=== PATIENT | male | born 1945 | race Caucasian/White ===

== ENCOUNTER → 2017-03-23 | Outpatient (CLI) | payer MEDICARE ==
--- NOTE | 2017-03-23 12:12 | US ---
EXAMINATION TYPE: US carotid duplex BILAT DATE OF EXAM: 03/23/2017 COMPARISON: NONE CLINICAL HISTORY: R55 pre syncope. Patient states passing out spontaneously. Prostate CA. No HTN. EXAM MEASUREMENTS: RIGHT: Peak Systolic Velocity (PSV) cm/sec ----- Right CCA: 87.7 ----- Right ICA: 53.2 ----- Right ECA: 55.8 ICA/CCA ratio: 0.6 RIGHT: End Diastole cm/sec ----- Right CCA: 22.7 ----- Right ICA: 18.2 ----- Right ECA: 10.4 LEFT: Peak Systolic Velocity (PSV) cm/sec ----- Left CCA: 76.7 ----- Left ICA: 53.2 ----- Left ECA: 63.8 ICA/CCA ratio: 0.7 LEFT: End Diastole cm/sec ----- Left CCA: 18.3 ----- Left ICA: 16.5 ----- Left ECA: 10.9 VERTEBRALS (direction of flow): Right Vertebral: Antegrade Left Vertebral: Antegrade No elevated velocities or significant stenosis noted. Small anterior plaque seen in left bulb. Bilate ral wall thickening. IMPRESSION: Mild atheromatous plaquing without hemodynamically significant stenosis within either ca rotid system.
--- NOTE | 2017-03-23 13:09 | MR ---
EXAMINATION TYPE: MR brain wo/w con DATE OF EXAM: 03/23/2017 COMPARISON: Outside report from [facility] of CT brain HISTORY: Syncope TECHNIQUE: Multiplanar, multisequence images of the brain and brainstem is performed without and with IV contras t, utilizing 10 mL intravenous Gadavist . FINDINGS: Diffusion weighted images demonstrate no evidence of a recent infarct or other diffusion abnormality. There is no extra-axial fluid collection or. The ventricular system and cisternal spaces are symmet rically prominent compatible with age-related volume loss. This is seen both supratentorially and inf ratentorially. There is ectasia of the left vertebral artery measuring up to 6 mm as opposed to the r ight vertebral artery measuring 2 mm. Scattered areas of T2 hyperintensity are seen throughout the subcortical and periventricular white ma tter. No enhancement are seen of any of these foci. Midline structures demonstrate normal morphology. The craniocervical junction appears within normal limits. Post contrast images demonstrate no abno rmal enhancement. The dural venous sinuses appear patent. Scant mucosal thickening is seen within the ethmoid sinuses and right maxillary sinus. Small amount of fluid is present within the mastoid air c ells. The remaining visualized sinuses are clear and the globes are intact. IMPRESSION: 1. Nonspecific white matter changes with no abnormal enhancement, likely on the basis of chronic micr oangiopathy. 2. No restricted diffusion, abnormal enhancement, or evidence of intracranial mass. 3. Left vertebral artery ectasia measuring up to 6 mm. 4. Age-related supratentorial and infratentorial symmetric volume loss. 5. Small amount of fluid within the mastoid air cells, that could clinically relate to mastoiditis. 6. Mild paranasal sinus disease.
== END | disposition home or self-care (01) ==
LOC: RADUSMAIN 10:26
PROVIDERS: ATTEND Psychiatry & Neurology Neurology
DX: I65.29 Occlusion and stenosis of unspecified carotid artery (principal); R90.89 Other abnormal findings on diagnostic imaging of central nervous system
CPT/HCPCS: 93880; 70553; A9581

== ENCOUNTER 2017-05-05 16:21 | Inpatient (IN) | payer MEDICARE ==
--- NOTE | 2017-05-05 17:13 | ED ---
General Adult HPI - General Chief complaint: Syncope Stated complaint: Syncope Time Seen by Provider: 05/05/17 16:25 Source: patient, family, RN notes reviewed Mode of arrival: wheelchair Limitations: no limitations - History of Present Illness Initial comments: This is a 71-year-old male who presents emergency department after having a syncopal episode. Patient states she was sitting his couch when also any felt manager internet the next thing he remembers is waking up in the chair. Patient states at that point he was asymptomatic. Patient's states he has had multiple syncopal episodes all over the last few years. Patient has a heart monitor on and a heart monitor company called the house and said he had a significant event and take the patient to the emergency department. Patient denies any chest pain palpitations difficulty breathing or shortness of breath. Patient denies any headache patient denies numbness weakness. Patient denies feeling lightheaded or dizzy. She states the only symptom he had was feeling warm. Patient states this is typical of what happens when he has had this in the past. - Related Data Home Medications Medication Instructions Recorded Confirmed Allopurinol [Zyloprim] 300 mg PO DAILY 05/05/17 05/05/17 Allergies Allergy/AdvReac Type Severity Reaction Status Date / Time ciprofloxacin Allergy Unknown Verified 05/05/17 17:35 levofloxacin Allergy Unknown Verified 05/05/17 17:35 Review of Systems ROS Statement: Those systems with pertinent positive or pertinent negative responses have been documented in the HPI. ROS Other: All systems not noted in ROS Statement are negative. Past Medical History Past Medical History: Cancer, Syncope Additional Past Medical History / Comment(s): gout, prostate History of Any Multi-Drug Resistant Organisms: None Reported Past Surgical History: Appendectomy Additional Past Surgical History / Comment(s): radiation Past Psychological History: No Psychological Hx Reported Smoking Status: Never smoker Past Alcohol Use History: Daily Past Drug Use History: None Reported General Exam - General Exam Comments Initial Comments: GENERAL: Patient is well-developed and well-nourished. Patient is nontoxic and well- hydrated and is in no acute distress. ENT: Neck is soft and supple. No significant lymphadenopathy is noted. Oropharynx is clear. Moist mucous membranes. Neck has full range of motion without eliciting any pain. EYES: The sclera were anicteric and conjunctiva were pink and moist. Extraocular movements were intact and pupils were equal round and reactive to light. Eyelids were unremarkable. PULMONARY: Unlabored respirations. Good breath sounds bilaterally. No audible rales rhonchi or wheezing was noted. CARDIOVASCULAR: There is a regular rate and rhythm without any murmurs gallops or rubs. ABDOMEN: Soft and nontender with normal bowel sounds. No palpable organomegaly was noted. There is no palpable pulsatile mass. SKIN: Skin is clear with no lesions or rashes and otherwise unremarkable. NEUROLOGIC: Patient is alert and oriented x3. Cranial nerves II through XII are grossly intact. Motor and sensory are also intact. Normal speech, volume and content. Symmetrical smile. MUSCULOSKELETAL: Normal extremities with adequate strength and full range of motion. No lower extremity swelling or edema. No calf tenderness. LYMPHATICS: No significant lymphadenopathy is noted PSYCHIATRIC: Normal psychiatric evaluation. Normal interpersonal interactions appears functionally intact in deals appropriately with others. No signs of depression. No signs of anxiety. 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 Patient's EKG shows no ST segment elevation or depression or T wave abnormalities are normal Chest x-ray shows no acute abnormality. We had the strips from the [email or web address] that was monitoring his heart it showed significant episodes of bradycardia I spoke with Dr. Kiran who is on for Dr. Colby he agreed to admit the patient I wrote admitting orders I consult to cardiology - Lab Data Result diagrams: 05/05/17 16:50 05/05/17 16:50 Lab Results 05/05/17 05/05/17 05/05/17 Range/Units 16:50 16:50 16:50 WBC 4.7 (3.8-10.6) k/uL RBC 4.36 (4.30-5.90) m/uL Hgb 14.1 (13.0-17.5) gm/dL Hct 43.3 (39.0-53.0) % MCV 99.3 (80.0-100.0) fL MCH 32.2 (25.0-35.0) pg MCHC 32.4 (31.0-37.0) g/dL RDW 14.8 (11.5-15.5) % Plt Count 179 (150-450) k/uL Neutrophils % 67 % Lymphocytes % 20 % Monocytes % 7 % Eosinophils % 3 % Basophils % 0 % Neutrophils # 3.1 (1.3-7.7) k/uL Lymphocytes # 0.9 L (1.0-4.8) k/uL Monocytes # 0.3 (0-1.0) k/uL Eosinophils # 0.1 (0-0.7) k/uL Basophils # 0.0 (0-0.2) k/uL Macrocytosis Slight PT (9.0-12.0) sec INR (<1.2) APTT (22.0-30.0) sec Sodium 136 L (137-145) mmol/L Potassium 4.3 (3.5-5.1) mmol/L Chloride 100 (98-107) mmol/L Carbon Dioxide 24 (22-30) mmol/L Anion Gap 12 mmol/L BUN 16 (9-20) mg/dL Creatinine 0.97 (0.66-1.25) mg/dL Est GFR (MDRD) Af Amer >60 (>60 ml/min/1.73 sqM) Est GFR (MDRD) Non-Af >60 (>60 ml/min/1.73 sqM) Glucose 130 H (74-99) mg/dL Calcium 9.5 (8.4-10.2) mg/dL Magnesium 2.0 (1.6-2.3) mg/dL Total Bilirubin 0.7 (0.2-1.3) mg/dL AST 28 (17-59) U/L ALT 32 (21-72) U/L Alkaline Phosphatase 97 (38-126) U/L Total Creatine Kinase 69 (55-170) U/L CK-MB (CK-2) 1.2 (0.0-2.4) ng/mL CK-MB (CK-2) Rel Index 1.7 Troponin I <0.012 (0.000-0.034) ng/mL Total Protein 7.0 (6.3-8.2) g/dL Albumin 4.4 (3.5-5.0) g/dL 05/05/17 Range/Units 16:50 WBC (3.8-10.6) k/uL RBC (4.30-5.90) m/uL Hgb (13.0-17.5) gm/dL Hct (39.0-53.0) % MCV (80.0-100.0) fL MCH (25.0-35.0) pg MCHC (31.0-37.0) g/dL RDW (11.5-15.5) % Plt Count (150-450) k/uL Neutrophils % % Lymphocytes % % Monocytes % % Eosinophils % % Basophils % % Neutrophils # (1.3-7.7) k/uL Lymphocytes # (1.0-4.8) k/uL Monocytes # (0-1.0) k/uL Eosinophils # (0-0.7) k/uL Basophils # (0-0.2) k/uL Macrocytosis PT 10.3 (9.0-12.0) sec INR 1.0 (<1.2) APTT 25.0 (22.0-30.0) sec Sodium (137-145) mmol/L Potassium (3.5-5.1) mmol/L Chloride (98-107) mmol/L Carbon Dioxide (22-30) mmol/L Anion Gap mmol/L BUN (9-20) mg/dL Creatinine (0.66-1.25) mg/dL Est GFR (MDRD) Af Amer (>60 ml/min/1.73 sqM) Est GFR (MDRD) Non-Af (>60 ml/min/1.73 sqM) Glucose (74-99) mg/dL Calcium (8.4-10.2) mg/dL Magnesium (1.6-2.3) mg/dL Total Bilirubin (0.2-1.3) mg/dL AST (17-59) U/L ALT (21-72) U/L Alkaline Phosphatase (38-126) U/L Total Creatine Kinase (55-170) U/L CK-MB (CK-2) (0.0-2.4) ng/mL CK-MB (CK-2) Rel Index Troponin I (0.000-0.034) ng/mL Total Protein (6.3-8.2) g/dL Albumin (3.5-5.0) g/dL Disposition Clinical Impression: Syncope and collapse, Bradycardia Disposition: ADMITTED IP TO THIS HOSP Referrals: Mikel Colby MD [Primary Care Provider] - 1-2 days Time of Disposition: 19:10
[2017-05-05 17:59] LABS: Basophils % (A) 0 %; CH 33.4; CHCM 33.9; Eosinophils # (A) 0.1 k/uL (0-0.7); Eosinophils % (A) 3 %; HCT 43.3 % (39.0-53.0); HDW 2.73; HGB 14.1 gm/dL (13.0-17.5); Luc # (Auto) 0.12; Luc % (Auto) 3; Lymphocytes # (A) 0.9 k/uL (1.0-4.8); Lymphocytes % (A) 20 %; MCH 32.2 pg (25.0-35.0); MCHC 32.4 g/dL (31.0-37.0); MCV 99.3 fL (80.0-100.0); Macrocytosis Slight; Mean Platelet Volume 7.6; Monocytes # (A) 0.3 k/uL (0-1.0); Monocytes % (A) 7 %; Neutrophils # (A) 3.1 k/uL (1.3-7.7); Neutrophils % (A) 67 %; RBC 4.36 m/uL (4.30-5.90); RDW 14.8 % (11.5-15.5); WBC 4.7 k/uL (3.8-10.6); WBC (Perox) 4.63
[2017-05-05 18:11] LABS: ALT 32 U/L (21-72); AST 28 U/L (17-59); Alkaline Phosphatase 97 U/L (38-126); Anion Gap 12 mmol/L; Blood Urea Nitrogen 16 mg/dL (9-20); Calcium 9.5 mg/dL (8.4-10.2); Carbon Dioxide 24 mmol/L (22-30); Chloride 100 mmol/L (98-107); Glucose 130 mg/dL (74-99); Non-African American GFR(MDRD) >60 (>60 ml/min/1.73 sqM); Potassium 4.3 mmol/L (3.5-5.1); Sodium 136 mmol/L (137-145); Total Bilirubin 0.7 mg/dL (0.2-1.3)
[2017-05-05 18:18] LABS: Creatine Kinase 69 U/L (55-170)
--- NOTE | 2017-05-05 18:27 | XR ---
EXAMINATION TYPE: XR chest 1V DATE OF EXAM: 05/05/2017 COMPARISON: NONE HISTORY: Chest pain TECHNIQUE: Single frontal view of the chest is obtained. FINDINGS: There is no heart failure nor confluent pneumonic infiltrate. Costophrenic angles are silvia r. There are chest leads. Heart size is normal. IMPRESSION: No active cardiopulmonary disease.
[2017-05-05 18:31] LABS: Creatine Kinase MB 1.2 ng/mL (0.0-2.4); Troponin I <0.012 ng/mL (0.000-0.034)
[2017-05-05 18:42] LABS: Prothrombin Time 10.3 sec (9.0-12.0)
[2017-05-05] MEDS ORDERED: SODIUM CHLORIDE 0.9% 1,000 ML IV ONE (19:12)
[2017-05-05 21:30] VITALS: BMI 37.3
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
[2017-05-06] MEDS ORDERED: ceFAZolin 1,000 MG in SODIUM CHLORIDE 0.9% IRRIGATIO 250 ML IRRIGATION ONE (10:33)
[2017-05-06] MEDS ORDERED: ceFAZolin 2 GM in SODIUM CHLORIDE 0.9% 100 ML IVPB ONE (10:33)
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
[2017-05-07 06:58] LABS: ALT 40 U/L (21-72); AST 23 U/L (17-59); Alkaline Phosphatase 114 U/L (38-126); Anion Gap 12 mmol/L; Blood Urea Nitrogen 18 mg/dL (9-20); Calcium 10.1 mg/dL (8.4-10.2); Carbon Dioxide 21 mmol/L (22-30); Chloride 104 mmol/L (98-107); Glucose 111 mg/dL (74-99); Non-African American GFR(MDRD) >60 (>60 ml/min/1.73 sqM); Potassium 4.7 mmol/L (3.5-5.1); Sodium 137 mmol/L (137-145); Total Bilirubin 1.1 mg/dL (0.2-1.3); Total Protein 7.2 g/dL (6.3-8.2)
[2017-05-07 07:01] LABS: Basophils % (A) 0 %; CH 32.5; CHCM 33.9; Eosinophils # (A) 0.2 k/uL (0-0.7); Eosinophils % (A) 3 %; HCT 46.3 % (39.0-53.0); HGB 15.3 gm/dL (13.0-17.5); Luc # (Auto) 0.15; Luc % (Auto) 3; Lymphocytes # (A) 1.2 k/uL (1.0-4.8); Lymphocytes % (A) 23 %; MCH 31.7 pg (25.0-35.0); MCV 96.2 fL (80.0-100.0); Mean Platelet Volume 7.4; Monocytes # (A) 0.4 k/uL (0-1.0); Monocytes % (A) 8 %; Neutrophils # (A) 3.3 k/uL (1.3-7.7); Neutrophils % (A) 63 %; RBC 4.81 m/uL (4.30-5.90); RDW 13.7 % (11.5-15.5); WBC 5.2 k/uL (3.8-10.6); WBC (Perox) 5.34
[2017-05-07 07:19] LABS: Manual Review Performed
[2017-05-07] MEDS: PANTOPRAZOLE 40 MG/10 ML VIAL IVP SCH (08:32)
--- NOTE | 2017-05-07 11:13 | P.PN ---
Subjective Progress Note Date: 05/07/17 05/07/17- patient being seen examined and evaluated today for Dr. Mikel Colby. patient is seen resting up in bed and street clothes, on room air. Denies any shortness of breath cough or congestion at this time. Patient is supposed to go for pacemaker insertion tomorrow with cardiology per the nursing staff. continues to be in sinus rhythm on telemetry. he has not required any supplemental oxygen. All labs and reports have been reviewed. He is afebrile, no further complaints. 05/06/17- This is a 71-year-old male patient being seen examined and evaluated today for Dr. Mikel Colby. Apparently the patient was resting in a recliner and became clammy and diaphoretic and then lost consciousness. He conveniently had a Holter monitor in place at that time in the Holter monitor company called the and stated that she should go to the emergency room. EKG on presentation in the emergency room did show a normal sinus rhythm with PACs. The Holter monitor company did send over the tracings and he was noted to have 2 episodes of greater than 4 second pause. Patient denies any chest pain, palpitations, difficulty in breathing or shortness of breath. He also denies feeling any lightheadedness or dizziness. Patient states he has had syncopal episodes in the past as well. Chest x-ray was negative for any acute cardiopulmonary disease. All labs and reports have been reviewed. Patient was admitted and cardiology was put on consult. Objective - Vital Signs Vital signs: Vital Signs Temp 97 F L 05/07/17 08:00 Pulse 90 05/07/17 08:00 Resp 17 05/07/17 08:00 BP 140/86 05/07/17 08:00 Pulse Ox 96 05/07/17 08:00 Intake & Output 05/06/17 05/07/17 05/07/17 18:59 06:59 18:59 Intake Total 100 360 Balance 100 360 Weight 108.3 kg Intake: Oral 100 360 Other: Voiding Method Toilet Toilet Toilet # Voids 1 - Exam GENERAL EXAM: Alert, active, comfortable in no apparent distress. HEAD: Normocephalic. EYES: Normal reaction of pupils, equal size. NOSE: Clear with pink turbinates. THROAT: No erythema or exudates. NECK: No masses, no JVD. CHEST: No chest wall deformity. LUNGS: Equal air entry with no crackles, wheeze, rhonchi or dullness. CVS: S1 and S2 normal with no audible mumurs, regular rhythm. ABDOMEN: No hepatosplenomegaly, normal bowel sounds, no guarding or rigidity. EXTREMITIES: No edema noted, pedal pulses palpable. SKIN: No rashes CENTRAL NERVOUS SYSTEM: No focal deficits, tone is normal in all 4 extremities. - Labs CBC & Chem 7: 05/07/17 06:09 05/07/17 06:09 Labs: Abnormal Lab Results - Last 24 Hours (Table) 05/07/17 Range/Units 06:09 Carbon Dioxide 21 L (22-30) mmol/L Glucose 111 H (74-99) mg/dL Assessment and Plan Plan: Assessment Syncope Abnormal EKG with evidence of greater than 4 second pulses Prostate cancer History of hypertension History of seizures Plan Medications have been reviewed and will be continued as ordered. Patient is being worked up for possible pacemaker insertion initially scheduled for tomorrow per nursing staff.. Continue with pulmonary hygiene, coughing and deep breathing exercises, and supportive care. Supplemental oxygen to maintain oxygen saturations of 92% or better. Continue nebulizer treatments. GI and DVT prophylaxis. We will continue to monitor labs/results and adjust treatment as necessary. Further recommendations pending. I performed an examination of the patient and discussed their management with the nurse practitioner. I have reviewed the nurse practitioner's note and agree with the documented findings and plan of care.
--- NOTE | 2017-05-07 12:31 | P.PN ---
Subjective Progress Note Date: 05/07/17 Principal diagnosis: Syncope This is a pleasant 71-year-old gentleman with history of multiple syncopal episodes, history of seizures, history of prostate cancer, he presented to the hospital following a syncopal episode. According to the , he was sitting in a lazy boy chair, became clammy and diaphoretic, and then lost consciousness. He did have a holter monitor in place, shortly after his syncopal episode they received a call from the [employer] stating that the patient had a cardiac event of greater than 4 seconds and was advised to come to the emergency room. According to the , patient had also been at [facility] recently because of frequent syncopal episodes, he had been evaluated by neurology, cardiology also had seen the patient on that occasion and recommended the outpatient Holter monitor. EKG on presentation here showed a normal sinus rhythm with PACs. Upon review of the monitor tracings sent over from the Holter monitor, patient is noted to have 2 episodes of greater than 4 second pause with we'll episodes of 2 second pauses. Is not on any rate lowering medications at home. Chest x-ray does not reveal any active cardiopulmonary disease. Blood Pressure on arrival 178/80, with a heart rate in the 70s 98% on room air. CBC normal, sodium 136, potassium 4.3, BUN 16, creatinine 0.9. Troponin 0.012. 05/07/2017 Patient seen and examined this morning, he's been ambulating in the delgado most of the day. No further pauses noted on the monitor. He is scheduled to undergo implantation of a permanent pacemaker tomorrow with Dr. Eid. The risks and the benefits were discussed with the patient and his in detail. TSH and free T4 normal. Objective - Vital Signs Vital signs: Vital Signs Temp 97 F L 05/07/17 08:00 Pulse 88 05/07/17 11:37 Resp 16 05/07/17 11:37 BP 129/88 05/07/17 11:37 Pulse Ox 97 05/07/17 11:37 Intake & Output 05/06/17 05/07/17 05/07/17 18:59 06:59 18:59 Intake Total 100 360 Output Total 120 Balance 100 240 Weight 108.3 kg Intake: Oral 100 360 Output: Urine 120 Other: Voiding Method Toilet Toilet Toilet # Voids 1 1 - Exam PHYSICAL EXAMINATION: HEENT: Head is atraumatic, normocephalic. Pupils equal, round. Neck is supple. There is no elevated jugular venous pressure. HEART EXAMINATION: S1 and S2 systolic murmur is heard CHEST EXAMINATION:[ Lungs are clear to auscultation and precussion. No chest wall tenderness is noted on palpation or with deep breathing.] ABDOMEN: [ Soft, nontender. Bowel sounds are heard. No organomegaly noted]. EXTREMITIES:[ 2+ peripheral pulses with no evidence of peripheral edema and no calf tenderness noted]. NEUROLOGIC [patient is awake, alert and oriented -3.] . - Labs CBC & Chem 7: 05/07/17 06:09 05/07/17 06:09 Labs: Abnormal Lab Results - Last 24 Hours (Table) 05/07/17 Range/Units 06:09 Carbon Dioxide 21 L (22-30) mmol/L Glucose 111 H (74-99) mg/dL Assessment and Plan Plan: Assessment and plan #1 multiple syncopal episodes with evidence of greater than 4 second pauses. Vasovagal features. #2 prostate cancer #3 hypertension #4 history of seizures Plan Patient is scheduled to undergo implantation of a permanent pacemaker tomorrow with Dr. Eid. The risks and benefits were explained to the patient and his in detail. DNP note has been reviewed, I agree with a documented findings and plan of care. Patient was seen and examined.
[2017-05-07] MEDS: SODIUM CHLORIDE 0.9% 1,000 ML IV SCH (23:21)
[2017-05-08] MEDS ORDERED: SODIUM CHLORIDE 0.9% 1,000 ML IV SCH (06:00)
[2017-05-08] MEDS: PANTOPRAZOLE 40 MG/10 ML VIAL IVP SCH (07:21)
[2017-05-08] MEDS ORDERED: ceFAZolin 2 GM in SODIUM CHLORIDE 0.9% 100 ML IVPB ONE (08:00)
[2017-05-08] MEDS ORDERED: ceFAZolin 1,000 MG in SODIUM CHLORIDE 0.9% IRRIGATIO 250 ML IRRIGATION ONE (08:00)
[2017-05-08] MEDS ORDERED: IV FLUID CONTINUATION 1,000 ML IV ONE (08:10)
[2017-05-08] MEDS ORDERED: IODIXANOL 320 MG/ML 100 ML IV ONE (08:26)
[2017-05-08] MEDS ORDERED: fentaNYL (PF) 50 MCG/ML 2 ML AMP ONE (08:40)
[2017-05-08] MEDS ORDERED: fentaNYL (PF) 50 MCG/ML 2 ML AMP IVP ONE (08:41)
[2017-05-08] MEDS ORDERED: MIDAZOLAM 2 MG/2 ML VIAL ONE (08:48)
[2017-05-08] MEDS: MIDAZOLAM 2 MG/2 ML VIAL IVP ONE ×2 (08:50→09:03)
[2017-05-08] MEDS ORDERED: LIDOCAINE 1% INJ 10MG/ML (20 ML MDV) IV ONE (08:51)
[2017-05-08] MEDS ORDERED: LIDOCAINE 1% INJ 10MG/ML (20 ML MDV) SQ ONE (08:53)
[2017-05-08] MEDS ORDERED: ACETAMINOPHEN TAB 325 MG TAB PO PRN (10:12)
--- NOTE | 2017-05-08 10:46 | CE ---
CARDIAC ELECTROPHYSIOLOGY REPORT A 71-year-old male patient, who presented to the hospital yet again with severe sick sinus syndrome with long sinus pauses associated with presyncope and syncope. The patient has had multiple episodes of syncopal spells for the last 3 months and his event monitor has shown long sinus pauses and sinus arrest. He is not on any chronotropic AV debbie blocking drugs. Electrolytes are normal. The potassium is normal. He was referred by Dr. VC Gunter for dual-chamber pacemaker implant. Patient brought to the EP lab in a fasting state. Written informed consent was obtained prior to the procedure. The left shoulder area was prepped and draped as per protocol. 1% lidocaine was used for local anesthesia. A 4 cm incision was made parallel to the deltopectoral groove. A 1.5 cm medial to it the incision was carried down to the level of the pectoralis muscle. A subfascial pocket was made. Hemostasis was assured. The left axillary vein was accessed at 2 separate points under fluoroscopy and via appropriately-sized introducer sheaths 2 leads were positioned in the right heart. The atrial lead was a [employer], model #2088TC, 46 cm in length and serial number [id number]. This was screwed in the right atrial appendage. P waves were 4.6 mV. Pacing threshold 0.8 V at 0.4 milliseconds. Pacing impedance of 400 ohms. 10 V test negative. The RV lead was positioned just above the RV apex, low septum. Pacing threshold was 0.8 V at 0.4 milliseconds. R-wave 6.5 mV. Pacing impedance 600 ohms. 10 V test negative. Both leads secured to the underlying pectoralis fascia using 2 nonabsorbable sutures. Pocket was irrigated with antibiotic solution. Leads were connected to the generator ([employer] model number [id number], serial #[id number]). The leads and the generator were placed in the subfascial pocket. The wound was closed in 3 layers and dressed per protocol. RESULT: Successful dual chamber implantation for symptomatic sick sinus syndrome with long sinus pauses and sinus arrest associated with presyncope and syncope. The device was reprogrammed to DDDR 50 to 130 bpm with VIP mode turned on. MMODL / IJN: [id number] /
--- NOTE | 2017-05-08 12:45 | P.PCN ---
Preoperative Diagnosis: Patient underwent EP procedure under conscious sedation/moderate sedation, monitoring of the level of consciousness and physiologic parameters including but not limited to vital signs and oxygenation. Patient tolerated the procedure well without any acute complications. Start time: 850 Stop time: 953 63 minutes
--- NOTE | 2017-05-08 15:15 | ECHOF ---
Referral Reason:syncope MEASUREMENTS -------- HEIGHT: 170.2 cm WEIGHT: 108.0 kg BP: 129/88 RVIDd: 2.6 cm (< 3.3) IVSd: 1.3 cm (0.6 - 1.1) LVIDd: 2.2 cm (3.9 - 5.3) LVPWd: 1.2 cm (0.6 - 1.1) IVSs: 1.5 cm LVIDs: 1.6 cm LVPWs: 1.6 cm LAESV Index (A-L): 18.18 ml/m Ao Diam: 3.9 cm (2.0 - 3.7) AV Cusp: 1.9 cm (1.5 - 2.6) LA Diam: 2.8 cm (2.7 - 3.8) MV E Sherman: 0.82 m/s MV DecT: 207 ms MV A Sherman: 1.10 m/s MV E/A Ratio: 0.74 FINDINGS -------- Sinus rhythm. This was a technically adequate study. The left ventricular size is normal. There is borderline concentric left ventricular hypertrophy. Overall left ventricular systolic function is normal with, an EF between 55 - 60 %. The right ventricle is normal in size and function. Normal LA size by volume 22+/-6 ml/m2. The right atrium is normal in size. The aortic valve is trileaflet, and appears structurally normal. No aortic stenosis or regurgitation. The mitral valve leaflets are mildly thickened. There is trace mitral regurgitation. Trace tricuspid regurgitation present. Right ventricular systolic pressure is normal at < 35 mmHg. There is no evidence of pulmonary hypertension. The pulmonic valve was not well visualized. The aortic root size is normal. Normal inferior vena cava with normal inspiratory collapse consistent with estimated right atrial pressure of 5 mmHg. The pericardium is normal. There is no pericardial effusion. CONCLUSIONS -------- 1. Sinus rhythm. 2. Trace tricuspid regurgitation present. 3. Right ventricular systolic pressure is normal at < 35 mmHg. 4. There is no evidence of pulmonary hypertension. 5. The pulmonic valve was not well visualized. 6. The aortic root size is normal. 7. There is no pericardial effusion. 8. This was a technically adequate study. 9. The left ventricular size is normal. 10. There is borderline concentric left ventricular hypertrophy. 11. Overall left ventricular systolic function is normal with, an EF between 55 - 60 %. 12. Normal LA size by volume 22+/-6 ml/m2. 13. The aortic valve is trileaflet, and appears structurally normal. No aortic stenosis or regurgitation. 14. The mitral valve leaflets are mildly thickened. 15. There is trace mitral regurgitation. [employer]: Isaiah Martinez RDCS
[2017-05-08] MEDS: ceFAZolin 2 GM in SODIUM CHLORIDE 0.9% 100 ML IVPB SCH ×2 (15:23→20:48)
[2017-05-08 16:33] VITALS: RESP 16
--- NOTE | 2017-05-08 18:58 | PN ---
PROGRESS NOTE SUBJECTIVE: A 71-year-old, white male with syncope due to ventricular pauses, pacemakers was placed today by Dr. Eid. He is on prophylactic antibiotics for wound site infection of the left chest. White count essentially normal. Labs essentially normal. Thyroid tests are normal. The patient is requesting a PSA level to be drawn. Discussed with him possible discharge home in the morning. He is on prophylactic antibiotics at this time. Vital signs appear to be stable. ASSESSMENT: Ventricular pauses, bradycardia, syncope, some vasovagal component. Pacemakers placed. Possible discharge home in the morning as the patient recovers from pacemaker placement. Being monitored. MMODL / IJN: [id number] /
[2017-05-09] MEDS: ceFAZolin 2 GM in SODIUM CHLORIDE 0.9% 100 ML IVPB SCH ×2 (03:45→08:23)
--- NOTE | 2017-05-09 07:19 | XR ---
EXAMINATION TYPE: XR chest 2V DATE OF EXAM: 05/09/2017 COMPARISON: 05/05/2017 HISTORY: 71-year-old male leak placement check TECHNIQUE: Frontal and lateral views FINDINGS: Rightward patient rotation ultrasound normal cardiac mediastinal contours and accentuates the elongat ed/ectatic thoracic aorta. Very calcified right hilar lymph node versus prominent vessel on end. Left anterior chest wall pacemaker generator with right atrial and right ventricular leads. Strandy atele ctasis at the left base. No consolidation or pleural effusion. IMPRESSION: Rotated exam accentuates the elongated/ectatic thoracic aorta. Very calcified lymph node at the right hilum which would suggest prior granulomatous disease. 2-lead left chest wall pacemaker generator.
[2017-05-09] MEDS: PANTOPRAZOLE 40 MG/10 ML VIAL IVP SCH (08:28)
[2017-05-09 08:48] VITALS: BP 130/75; PULSE 80; TEMP 98
--- NOTE | 2017-05-09 14:12 | P.PN ---
Subjective Progress Note Date: 05/09/17 Principal diagnosis: Syncope This is a pleasant 71-year-old gentleman with history of multiple syncopal episodes, history of seizures, history of prostate cancer, he presented to the hospital following a syncopal episode. According to the , he was sitting in a lazy boy chair, became clammy and diaphoretic, and then lost consciousness. He did have a holter monitor in place, shortly after his syncopal episode they received a call from the [employer] stating that the patient had a cardiac event of greater than 4 seconds and was advised to come to the emergency room. According to the , patient had also been at [facility] recently because of frequent syncopal episodes, he had been evaluated by neurology, cardiology also had seen the patient on that occasion and recommended the outpatient Holter monitor. EKG on presentation here showed a normal sinus rhythm with PACs. Upon review of the monitor tracings sent over from the Holter monitor, patient is noted to have 2 episodes of greater than 4 second pause with we'll episodes of 2 second pauses. Is not on any rate lowering medications at home. Chest x-ray does not reveal any active cardiopulmonary disease. Blood Pressure on arrival 178/80, with a heart rate in the 70s 98% on room air. CBC normal, sodium 136, potassium 4.3, BUN 16, creatinine 0.9. Troponin 0.012. 05/07/2017 Patient seen and examined this morning, he's been ambulating in the delgado most of the day. No further pauses noted on the monitor. He is scheduled to undergo implantation of a permanent pacemaker tomorrow with Dr. Eid. The risks and the benefits were discussed with the patient and his in detail. TSH and free T4 normal. 05/09/2017 Patient underwent implantation of a permanent pacemaker yesterday by Dr. Eid. He was seen and examined this morning, device was interrogated and is functioning appropriately. Chest x-ray was reviewed which did not reveal any evidence of a pneumothorax. Objective - Vital Signs Vital signs: Vital Signs Temp 98 F 05/09/17 08:00 Pulse 80 05/09/17 08:00 Resp 16 05/09/17 08:00 BP 130/75 05/09/17 08:00 Pulse Ox 95 05/09/17 08:00 Intake & Output 1005/09/17 05/09/17 18:59 06:59 18:59 Intake Total 1030 200 240 Output Total 600 300 Balance 430 -100 240 Weight 106.3 kg Intake: IV 150 Intake, IV Titration 400 200 Amount Sodium Chloride 0.9% 1, 400 000 ml @ 100 mls/hr IV . Q10H FAIZA Rx#:[id number] ceFAZolin 2 gm In Sodium 200 Chloride 0.9% 100 ml @ 100 mls/hr IVPB Q6H FAIZA Rx#:[id number] Oral 480 240 Output: Urine 600 300 Other: Voiding Method Toilet Toilet Toilet # Voids 1 2 # Bowel Movements 0 0 0 - Exam PHYSICAL EXAMINATION: HEENT: Head is atraumatic, normocephalic. Pupils equal, round. Neck is supple. There is no elevated jugular venous pressure. HEART EXAMINATION: S1 and S2 systolic murmur is heard site of pacemaker implantation, dressing is dry and intact. CHEST EXAMINATION:[ Lungs are clear to auscultation and precussion. No chest wall tenderness is noted on palpation or with deep breathing.] ABDOMEN: [ Soft, nontender. Bowel sounds are heard. No organomegaly noted]. EXTREMITIES:[ 2+ peripheral pulses with no evidence of peripheral edema and no calf tenderness noted]. NEUROLOGIC [patient is awake, alert and oriented -3.] . - Labs CBC & Chem 7: 05/07/17 06:09 05/07/17 06:09 Assessment and Plan Plan: Assessment and plan #1 multiple syncopal episodes with evidence of greater than 4 second pauses. Vasovagal features. Status post implantation of permanent pacemaker #2 prostate cancer #3 hypertension #4 history of seizures Plan Cardiology's perspective, patient may be able to be discharged home today. We will make him a follow-up appointment in the office at the device clinic in one week, patient will then follow with Dr. VC Gunter following that DNP note has been reviewed, I agree with a documented findings and plan of care. Patient was seen and examined.
== END 2017-05-09 11:15 | disposition home or self-care (01) | DRG 244 ==
LOC: EC 16:21 → 6SEL 19:12
PROVIDERS: ADMIT Family Medicine; ATTEND Family Medicine
PROC: 02HK3JZ Insertion of Pacemaker Lead into Right Ventricle, Percutaneous Approach (ICD-10-PCS; principal; 2017-05-08 08:07)
PROC: 0JH606Z Insertion of Pacemaker, Dual Chamber into Chest Subcutaneous Tissue and Fascia, Open Approach (ICD-10-PCS; principal; 2017-05-08 08:07)
PROC: 02H63JZ Insertion of Pacemaker Lead into Right Atrium, Percutaneous Approach (ICD-10-PCS; principal; 2017-05-08 08:07)
DX: R00.1 Bradycardia, unspecified (principal); I10 Essential (primary) hypertension; M10.9 Gout, unspecified; Z80.1 Family history of malignant neoplasm of trachea, bronchus and lung; Z85.46 Personal history of malignant neoplasm of prostate; Z88.1 Allergy status to other antibiotic agents
CPT/HCPCS: 33208; 36415; 71010; 71020; 80053; 82550; 82553; 83735; 84153; 84439; 84443; 84484; 85025; 85610; 85730; 93005; 93306; 99285

== ENCOUNTER 2018-04-17 13:16 | Inpatient (IN) | payer MEDICARE ==
[2018-04-17] MEDS ORDERED: SODIUM CHLORIDE 0.9% 1,000 ML IV STA (14:36)
[2018-04-17 14:48] LABS: Basophils % (A) 0 %; Eosinophils # (A) 0.1 k/uL (0-0.7); Eosinophils % (A) 2 %; HCT 32.8 % (39.0-53.0); HGB 11.4 gm/dL (13.0-17.5); Lymphocytes # (A) 0.7 k/uL (1.0-4.8); Lymphocytes % (A) 16 %; MCH 31.6 pg (25.0-35.0); MCHC 34.6 g/dL (31.0-37.0); MCV 91.5 fL (80.0-100.0); Mean Platelet Volume 6.8; Monocytes # (A) 0.3 k/uL (0-1.0); Monocytes % (A) 7 %; Neutrophils # (A) 3.1 k/uL (1.3-7.7); Neutrophils % (A) 71 %; Platelet Count 105 k/uL (150-450); Poikilocytosis Slight; RBC 3.59 m/uL (4.30-5.90); RDW 15.5 % (11.5-15.5); WBC 4.4 k/uL (3.8-10.6)
[2018-04-17 14:59] LABS: Albumin 3.7 g/dL (3.5-5.0); Calcium 11.6 mg/dL (8.4-10.2); Potassium 3.9 mmol/L (3.5-5.1); Total Bilirubin 1.6 mg/dL (0.2-1.3); Total Protein 6.3 g/dL (6.3-8.2)
[2018-04-17 15:15] LABS: Creatine Kinase MB 2.7 ng/mL (0.0-2.4); Troponin I 0.018 ng/mL (0.000-0.034)
--- NOTE | 2018-04-17 15:23 | XR ---
EXAMINATION TYPE: XR chest 2V DATE OF EXAM: 04/17/2018 COMPARISON: Chest x-ray May 09, 2017 HISTORY: Altered mental status and confusion. TECHNIQUE: Frontal and lateral views of the chest are obtained. FINDINGS: Low lung volumes are present. There is no focal air space opacity, pleural effusion, or pne umothorax seen. The cardiac silhouette size remains enlarged with dual lead pacemaker and ectatic th oracic aorta. The osseous structures are intact. IMPRESSION: Diminished inspiration on current study. There is cardiomegaly without suspicious new ac sherif pulmonary process.
[2018-04-17 15:30] LABS: Prothrombin Time 10.2 sec (9.0-12.0)
[2018-04-17 15:48] LABS: Partial Thromboplastin Time 16.3 sec (22.0-30.0)
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
--- NOTE | 2018-04-17 15:55 | CT ---
EXAMINATION TYPE: CT brain wo con for TPA DATE OF EXAM: 04/17/2018 HISTORY: Confusion. CT DLP: 1124.74 mGycm. Automated Exposure Control for Dose Reduction was Utilized. TECHNIQUE: CT scan of the head is performed without contrast. COMPARISON: MRI brain March 23, 2017 FINDINGS: There is no acute intracranial hemorrhage or midline shift identified. There is diffuse v entricular and sulcal prominence consistent with diffuse age-related cerebral atrophy. There is low- attenuation in the periventricular white matter consistent with chronic small vessel ischemic change. Vascular calcification distal internal carotid arteries is identified bilaterally. The globes are i ntact and the visualized sinuses are clear. IMPRESSION: No acute intracranial hemorrhage or midline shift. There is persistent moderate to yaya re diffuse age-related cerebral atrophy and mild chronic small vessel ischemic change redemonstrated without significant change from prior MRI.
--- NOTE | 2018-04-17 16:39 | CT ---
EXAMINATION TYPE: CT angio head neck DATE OF EXAM: 04/17/2018 HISTORY: Confusion. COMPARISON: 04/17/2018 CT DLP: 488.28 mGycm. Automated Exposure Control for Dose Reduction was Utilized. TECHNIQUE: CTA scan of the neck is performed with IV Contrast, patient injected with 65 mL of Isovue 370, axial images are obtained, coronal and sagittal reformatted images are reviewed. Three-D recons tructed images are created on an independent workstation and reviewed. FINDINGS: Mild atherosclerotic change of the aorta. Lungs are clear. Left vertebral artery is dominant. There is a aberrant course of the left vertebral artery. There is intracranial atherosclerotic change of the left vertebral artery. Atherosclerotic ch elham of the intracranial internal carotid arteries are seen. There is enhancement of the anterior and middle cerebral arteries bilaterally. Other cardiac device is noted. Subsegmental changes involving the lungs most typical of atelectasis. Hypertrophic and degenerative change of the spine. There is abnormal appearance of the sternum and ad ditional other osseous structures visualized correlate for history of malignancy of possible metastas is. Sclerotic change involving the left margin of the odontoid noted. This could be post arthritic or metastatic. The appearance of the sternum is consistent with metastasis. Additionally there are abno rmal appearance to the rib cage bilaterally but particularly involving the left second rib. IMPRESSION: 1. No significant stenosis involving the carotid bifurcation bilaterally. 2. Intracranial atherosclerotic changes. 3. No sizable aneurysm or vascular malformation. There is diminished caliber to the anterior cerebral artery bilaterally which may be technical. If there is concern for intracranial thrombus correlate w ith MRI\ MRA. 4. Findings are suggestive of diffuse osseous metastasis with a destructive lesion involving the ster num with soft tissue component and mass. 5. 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 6. Degenerative and nonspecific white matter changes correlate for remote microvascular ischemia. 7 u pper lobe subsegmental consolidation.
[2018-04-17 17:03] LABS: Appearance,Urine Clear (Clear); Bilirubin,Urine Negative (Negative); Blood,Urine Negative (Negative); Color,Urine Yellow; Glucose,Urine (UA) Negative (Negative); Ketones,Urine 1+ (Negative); Leukocyte Esterase,Urine Negative (Negative); Nitrite,Urine Negative (Negative); PH, Urine 5.5 (5.0-8.0); Protein,Urine Trace (Negative); Specific Gravity,Urine 1.044 (1.001-1.035)
[2018-04-17 17:13] LABS: Magnesium 1.9 mg/dL (1.6-2.3); Phosphorus 3.7 mg/dL (2.5-4.5)
[2018-04-17] MEDS ORDERED: HALOPERIDOL LACTATE 5 MG/ML 1 ML VIAL IM PRN (19:17)
[2018-04-17] MEDS ORDERED: LABETALOL 5 MG/ML VIAL MDV IVP PRN (19:31)
[2018-04-17] MEDS ORDERED: ACETAMINOPHEN TAB 325 MG TAB PO PRN (20:05)
[2018-04-17] MEDS: HEPARIN SODIUM,PORCINE 5,000 UNIT/ML 1 ML VIAL SQ SCH ×2 (21:47→22:01)
[2018-04-17] MEDS: LOSARTAN 50 MG TAB PO SCH ×2 (21:47→22:01)
[2018-04-17] MEDS: amLODIPine 5 MG TAB PO SCH (21:47)
[2018-04-17] MEDS: SODIUM CHLORIDE 0.9% 1,000 ML IV SCH (21:48)
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
[2018-04-18 07:21] LABS: Basophils % (A) 0 %; Eosinophils # (A) 0.1 k/uL (0-0.7); Eosinophils % (A) 3 %; HCT 27.7 % (39.0-53.0); Lymphocytes # (A) 0.6 k/uL (1.0-4.8); Lymphocytes % (A) 16 %; MCH 30.7 pg (25.0-35.0); MCHC 33.3 g/dL (31.0-37.0); MCV 92.4 fL (80.0-100.0); Monocytes # (A) 0.2 k/uL (0-1.0); Monocytes % (A) 6 %; Neutrophils # (A) 2.5 k/uL (1.3-7.7); Neutrophils % (A) 72 %; Poikilocytosis Slight; RDW 15.8 % (11.5-15.5); WBC 3.4 k/uL (3.8-10.6)
[2018-04-18 07:22] LABS: Anion Gap 7 mmol/L; Blood Urea Nitrogen 23 mg/dL (9-20); Calcium 10.6 mg/dL (8.4-10.2); Carbon Dioxide 26 mmol/L (22-30); Chloride 106 mmol/L (98-107); Cholesterol 134 mg/dL (<200); Glucose 95 mg/dL (74-99); HDL Cholesterol 44 mg/dL (40-60); LDL Cholesterol,Calculated 82 mg/dL (0-99); Potassium 3.4 mmol/L (3.5-5.1); Sodium 139 mmol/L (137-145); Triglycerides 40 mg/dL (<150)
[2018-04-18 07:34] LABS: HGB 9.2 gm/dL (13.0-17.5)
[2018-04-18 07:51] LABS: Ionized Calcium 6.1 mg/dL (4.5-5.3)
[2018-04-18] MEDS: ALLOPURINOL 300 MG TAB PO SCH (07:56)
[2018-04-18] MEDS: HEPARIN SODIUM,PORCINE 5,000 UNIT/ML 1 ML VIAL SQ SCH ×2 (07:56→19:49)
[2018-04-18] MEDS: amLODIPine 5 MG TAB PO SCH (07:56)
[2018-04-18] MEDS: LOSARTAN 50 MG TAB PO SCH (07:56)
[2018-04-18] MEDS: SODIUM CHLORIDE 0.9% 1,000 ML IV SCH ×3 (07:57→22:47)
[2018-04-18 08:38] LABS: Platelet Count 90 k/uL (150-450)
--- NOTE | 2018-04-18 11:21 | NM ---
EXAMINATION TYPE: NM bone scan whole body DATE OF EXAM: 04/18/2018 COMPARISON: Prior CT brain and neck 04/17/2018 HISTORY: Metastatic disease, abnormal CT, hypercalcemia Delayed whole-body scanning was performed following the injection of 24.8 mCi Tc 99m MDP. Images acq uired 3.5 hours post injection. FINDINGS: Multiple focal areas of increased uptake are present throughout the calvarium which correspond to the lucent foci noted on brain CT. Multiple areas of increased uptake are present throughout the ribs, s houlders, proximal upper and lower extremities, sternum, vertebral bodies. IMPRESSION: Findings compatible with metastatic disease.
[2018-04-18] MEDS ORDERED: Potassium Replacement Protocol 1 EACH MISC MISCELLANE PRN (14:03)
[2018-04-18] MEDS: FUROSEMIDE 10 MG/ML 2 ML VIAL IV SCH ×2 (14:31→19:49)
[2018-04-18] MEDS: POTASSIUM CHLORIDE ER 20 MEQ TAB.ER PO SCH ×2 (15:33→16:30)
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
[2018-04-19 07:28] LABS: Anisocytosis Slight; Basophils % (A) 0 %; Eosinophils # (A) 0.1 k/uL (0-0.7); Eosinophils % (A) 3 %; HCT 28.2 % (39.0-53.0); HGB 9.2 gm/dL (13.0-17.5); Lymphocytes # (A) 0.7 k/uL (1.0-4.8); Lymphocytes % (A) 19 %; MCH 30.9 pg (25.0-35.0); MCHC 32.7 g/dL (31.0-37.0); MCV 94.4 fL (80.0-100.0); Mean Platelet Volume 6.8; Monocytes # (A) 0.3 k/uL (0-1.0); Monocytes % (A) 7 %; Neutrophils # (A) 2.6 k/uL (1.3-7.7); Neutrophils % (A) 68 %; Poikilocytosis Slight; RBC 2.99 m/uL (4.30-5.90); RDW 16.1 % (11.5-15.5); WBC 3.8 k/uL (3.8-10.6)
[2018-04-19 07:34] LABS: Platelet Count 83 k/uL (150-450)
[2018-04-19 07:51] LABS: Ionized Calcium 6.2 mg/dL (4.5-5.3)
[2018-04-19 07:53] LABS: Anion Gap 8 mmol/L; Blood Urea Nitrogen 20 mg/dL (9-20); Calcium 10.7 mg/dL (8.4-10.2); Carbon Dioxide 28 mmol/L (22-30); Chloride 105 mmol/L (98-107); Glucose 85 mg/dL (74-99); Magnesium 1.8 mg/dL (1.6-2.3); Potassium 3.2 mmol/L (3.5-5.1); Sodium 141 mmol/L (137-145)
[2018-04-19] MEDS: FUROSEMIDE 10 MG/ML 2 ML VIAL IV SCH ×2 (07:59→20:05)
[2018-04-19] MEDS: amLODIPine 5 MG TAB PO SCH (07:59)
[2018-04-19] MEDS: ALLOPURINOL 300 MG TAB PO SCH (07:59)
[2018-04-19] MEDS: HEPARIN SODIUM,PORCINE 5,000 UNIT/ML 1 ML VIAL SQ SCH ×2 (08:00→20:05)
[2018-04-19] MEDS: LOSARTAN 50 MG TAB PO SCH (08:00)
[2018-04-19] MEDS: SODIUM CHLORIDE 0.9% 1,000 ML IV SCH ×3 (12:34→19:05)
[2018-04-19] MEDS ORDERED: Potassium Replacement Protocol 1 EACH MISC MISCELLANE PRN (14:27)
[2018-04-19] MEDS ORDERED: SODIUM CHLORIDE 0.9% 250 ML with PAMIDRONATE 90 MG IV ONE ×2 (15:00)
[2018-04-19] MEDS: POTASSIUM CHLORIDE ER 20 MEQ TAB.ER PO SCH ×2 (15:06→15:59)
--- NOTE | 2018-04-19 17:48 | PN ---
PROGRESS NOTE DATE OF SERVICE: 04/19/2018 ATTENDING PHYSICIAN: Dr. Elvis Willis 72-year-old white male, . DATA: 5 foot 7 inches and he is a 97.7 kg, BSA 2.09 m2, BMI of 33.7 kg/m2. THE ALLERGY IS CIPROFLOXACIN AND LEVOFLOXACIN, unknown reaction. The patient is seen today evaluated and I did discuss the plan yesterday with his in detail and at this time because of he had a hypercalcemia and Dr. Rosales was consulted as well as the Hematology/Oncology and also the patient has severe prostatic PSA elevation to more than 1000, and his vitamin D hydroxy is 19.3, and he had metastasis to the sternum and bone and by the bone scan and also scalp, skull and ribs. His lipid profile is normal. His calcium ionized today is 6.2 with still was yesterday 6.1 in spite of using the Lasix and hydration, was not controlled well and with the chemistry indicating that the potassium is 3.2, and we are supplementing the potassium and his glomerular filtration rate is currently non- is 81. His BUN of 20 and creatinine 0.93 and potassium 3.2, and the sodium 141. His white count is normal 3.8 with a hemoglobin 9.2 and hematocrit 28.2, and the platelet count is 83, with the thrombocytopenia. He has anisocytosis and poikilocytosis as well. He is currently his EKG as well was indicating sinus rhythm with occasional premature ventricular complexes. No chest pain. No evidence of stroke or TIA. He had confusion and dementia and history of admission was hypertension which is currently well controlled. Currently on exam blood pressure 136/72, and pulse ox 94 and pulse rate is 90 and respiratory rate is 17. His temperature was 97 orally. On the reviewing of his medication: He is on heparin subcu as well as he is on the losartan for the hypertension and that was [address] Rosales consulted because of the prostatic cancer and amenable by treatment and however, the has different opinion and we will ask Dr. Rosales to stick with her in case of she needs some more information. However, if the patient and his does not want treatment for the metastatic prostate cancer with the probable adenocarcinoma, as he was Millie 9 5+ [address] was done by Dr. Doran. He had the radiation seed and radiation therapy did not work and he subsequently was on Lupron and the stopped the medication and they stated that they do not need any treatment. However, that was in [facility] and they have to drive over there. This facility is with the presence of [facility] here in [place] will be helpful to try again if we have to, however, is up to the and her . The patient seen by Psychiatry as well and he stated that the patient is probably not in delirium, but in Alzheimer's and he has his remote memory is much better than immediate memory. The patient also on pamidronate and that is pamidronate is 90 mg IV 83 mL/h and that is for the hypercalcemia and which is we will see results by tomorrow and we will be ordering again the calcium as well as the potassium and the potassium was supplemented with the protocol as well. The patient today on seeing the patient, he is happy. He is conscious, alert, moving 4 extremities. 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 No evidence of neurological deficit. Moving 4 extremities. His neck was supple and chest was clear and the heart was regular sinus rhythm. He had a pacemaker but no evidence of atrial fibrillation and the abdomen is soft, obese, positive bowel sounds. Extremities: No edema. ASSESSMENT: Underlying dehydration probably associated with hypercalcemia and secondary to metastatic disease of the prostate with the bone scan was very clearly indicating the metastatic as well as the CT scan. We will continue the current treatment and hypercalcemia and the patient's will be looking for the hospice program or the home hospice or the other alternative. We consulted the social work coordinator as well and to have a definitive within the next couple days and patient will be able to be discharged if the patient does not want any for further treatment or his decided no further treatment. MMODL / IJN: [id number] /
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
[2018-04-20] MEDS: SODIUM CHLORIDE 0.9% 1,000 ML IV SCH (06:10)
[2018-04-20 06:43] LABS: Ionized Calcium 5.9 mg/dL (4.5-5.3)
[2018-04-20 06:52] LABS: Anion Gap 9 mmol/L; Blood Urea Nitrogen 18 mg/dL (9-20); Calcium 10.8 mg/dL (8.4-10.2); Carbon Dioxide 27 mmol/L (22-30); Chloride 103 mmol/L (98-107); Glucose 89 mg/dL (74-99); Potassium 3.3 mmol/L (3.5-5.1); Sodium 139 mmol/L (137-145)
[2018-04-20] MEDS: ALLOPURINOL 300 MG TAB PO SCH (08:29)
[2018-04-20] MEDS: FUROSEMIDE 10 MG/ML 2 ML VIAL IV SCH (08:30)
[2018-04-20] MEDS: LOSARTAN 50 MG TAB PO SCH (08:31)
[2018-04-20] MEDS: HEPARIN SODIUM,PORCINE 5,000 UNIT/ML 1 ML VIAL SQ SCH (08:31)
[2018-04-20] MEDS: amLODIPine 5 MG TAB PO SCH (08:32)
[2018-04-20 08:33] VITALS: BP 139/76; PULSE 97; RESP 18; TEMP 98
[2018-04-20] MEDS ORDERED: POTASSIUM CHLORIDE ER 10 MEQ TAB.ER.PRT PO SCH (12:45)
[2018-04-20] MEDS ORDERED: FUROSEMIDE 20 MG TAB PO SCH (16:00)
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
== END 2018-04-20 13:08 | disposition hospice, inpatient (51) | DRG 641 ==
LOC: EC 13:16 → 6SEL 16:55 → OBSVTOIN 04-19 08:09
PROVIDERS: ADMIT Internal Medicine; ATTEND Internal Medicine
DX: E83.52 Hypercalcemia (principal); C79.51 Secondary malignant neoplasm of bone; F02.81 Dementia in other diseases classified elsewhere, unspecified severity, with behavioral disturbance; C61 Malignant neoplasm of prostate; D64.9 Anemia, unspecified; E86.0 Dehydration; G30.9 Alzheimer's disease, unspecified; H57.9 Unspecified disorder of eye and adnexa; I11.9 Hypertensive heart disease without heart failure; I67.2 Cerebral atherosclerosis; K40.20 Bilateral inguinal hernia, without obstruction or gangrene, not specified as recurrent; M10.9 Gout, unspecified; M47.9 Spondylosis, unspecified; R45.1 Restlessness and agitation; K57.30 Diverticulosis of large intestine without perforation or abscess without bleeding; F01.50 Vascular dementia, unspecified severity, without behavioral disturbance, psychotic disturbance, mood disturbance, and anxiety; Z66 Do not resuscitate; Z90.49 Acquired absence of other specified parts of digestive tract; Z86.73 Personal history of transient ischemic attack (TIA), and cerebral infarction without residual deficits; Z88.1 Allergy status to other antibiotic agents; Z79.899 Other long term (current) drug therapy; Z92.3 Personal history of irradiation; Z87.820 Personal history of traumatic brain injury; Z80.1 Family history of malignant neoplasm of trachea, bronchus and lung
CPT/HCPCS: 36415; 70450; 70496; 70498; 71046; 78306; 80048; 80053; 80061; 81003; 82140; 82306; 82330; 82550; 82553; 83735; 84100; 84132; 84443; 84484; 85025; 85610; 85730; 93005; 96360; 96361; 99285